=== PATIENT | female | born 1965 ===

== ENCOUNTER 2016-10-08 10:20 | Day surgery (SDC) | payer SELFPAY ==
[2016-10-08 11:45] VITALS: BMI 36.2
[2016-10-08] MEDS ORDERED: Lactated Ringer's 500 ML IV ONE (11:48)
[2016-10-08 12:05] VITALS: TEMP 97
[2016-10-08] MEDS ORDERED: Propofol 10 mg/ml Inj (20 ML) ONE (12:34)
[2016-10-08 13:34] VITALS: BP 108/68; PULSE 33; RESP 15; O2SAT 100
== END 2016-10-08 13:37 | disposition home or self-care (01) ==
LOC: H.ENDO 10:20
PROVIDERS: ATTEND Internal Medicine Gastroenterology
DX: Z12.11 Encounter for screening for malignant neoplasm of colon (principal); E11.9 Type 2 diabetes mellitus without complications; I10 Essential (primary) hypertension; K64.9 Unspecified hemorrhoids

== ENCOUNTER 2016-10-30 17:57 | Emergency (ER) | payer SELFPAY ==
[2016-10-30 17:57] VITALS: BMI 36.2
[2016-10-30 18:32] VITALS: BP 144/84; PULSE 64; RESP 17; TEMP 98.3; O2SAT 98
[2016-10-30] MEDS ORDERED: Sodium Chloride 0.9% 1,000 ML IV STA (19:32)
--- NOTE | 2016-10-30 20:13 | ED PDOC ---
HPI: Headache Time Seen by Provider: 10/30/16 18:00 Chief Complaint (Nursing): Headache Chief Complaint (Provider): dizziness History Per: Patient History/Exam Limitations: no limitations Onset/Duration Of Symptoms: Days (2) Severity: Mild Additional Complaint(s): pt here with daugther for 2 days of dizziness and headache. worse with head movement. no fever/vomiting. mild nausea. no chest or abdominal pain. no diarrhea. pt had dizziness previously, had not gotten CT head in the past. Past Medical History Reviewed: Historical Data, Nursing Documentation, Vital Signs Vital Signs: Last Vital Signs Temp 98.3 F 10/30/16 18:30 Pulse 64 10/30/16 18:30 Resp 17 10/30/16 18:30 BP 144/84 10/30/16 18:30 Pulse Ox 98 10/30/16 18:30 - Medical History PMH: Diabetes, HTN, Hypercholesterolemia Denies: Cardia Arrhythmia, CHF, Mitral Valve Prolapse, Peripheral Edema, Chronic Kidney Disease - Surgical History Surgical History: Cholecystectomy - Family History Family History: States: Unknown Family Hx - Living Arrangements Living Arrangements: With Family - Social History Ex-Smoker (has not smoked in the last 12 months): Yes Alcohol: None Drugs: Denies - Immunization History Hx Tetanus Toxoid Vaccination: No Hx Influenza Vaccination: No Hx Pneumococcal Vaccination: No - Home Medications Home Medications: Ambulatory Orders Medication Instructions Recorded Aspirin [Adult Low Dose Aspirin EC] 81 mg PO DAILY 06/17/16 Losartan [Cozaar] 50 mg PO DAILY 06/17/16 hydroCHLOROthiazide [Microzide] 50 mg PO DAILY 06/17/16 metFORMIN [glucOPHAGE] 500 mg PO DAILY 06/17/16 - Allergies Allergies/Adverse Reactions: Allergies Allergy/AdvReac Type Severity Reaction Status Date / Time No Known Allergies Allergy Verified 10/30/16 18:30 Review of Systems ROS Statement: Except As Marked, All Systems Reviewed And Found Negative Musculoskeletal: Negative for: Neck Pain, Shoulder Pain, Arm Pain, Back Pain Neurological: Positive for: Headache, Dizziness. Negative for: Weakness, Numbness, Incoordination, Change in Speech, Confusion, Seizures, Altered Mental Status Physical Exam - Reviewed Nursing Documentation Reviewed: Yes Vital Signs Reviewed: Yes - Physical Exam Appears: Positive for: Well, Non-toxic, No Acute Distress Head Exam: Positive for: ATRAUMATIC, NORMAL INSPECTION, NORMOCEPHALIC Skin: Positive for: Normal Color, Warm, DRY Eye Exam: Positive for: EOMI, Normal appearance, PERRL ENT: Positive for: Normal ENT Inspection Neck: Positive for: Normal, Painless ROM Cardiovascular/Chest: Positive for: Regular Rate, Rhythm Respiratory: Positive for: CNT, Normal Breath Sounds Gastrointestinal/Abdominal: Positive for: Normal Exam, Bowel Sounds, Soft Back: Positive for: Normal Inspection Extremity: Positive for: Normal ROM Neurologic/Psych: Positive for: Alert, Oriented - ECG O2 Sat by Pulse Oximetry: 98 Medical Decision Making Medical Decision Making: I ordered all medications and labs but pt unable to be found in ER at 840 pm (RNn had not placed IV hep lock yet) Disposition - Clinical Impression Clinical Impression: Headache - Patient ED Disposition Is Patient to be Admitted: No Counseled Patient/Family Regarding: Studies Performed, Diagnosis, Need For Followup - Disposition Referrals: Chava Martinez MD [Primary Care Provider] - Disposition: Left W/O Treatment Disposition Time: 20:00 Condition: UNKNOWN
== END 2016-10-30 20:51 | disposition left against medical advice (07) ==
LOC: H.ER 17:57
DX: R51 Headache (principal); E11.9 Type 2 diabetes mellitus without complications; E78.00 Pure hypercholesterolemia, unspecified; I10 Essential (primary) hypertension; Z79.82 Long term (current) use of aspirin; Z79.84 Long term (current) use of oral hypoglycemic drugs; R42 Dizziness and giddiness